=== PATIENT | female | born 1975 | race Two or more races ===

== ENCOUNTER 2016-08-07 11:51 | Emergency (ER) | payer SELFPAY | END 2016-08-07 12:38 | disposition home or self-care (01) | LOC: ED 11:51 | DX: G44.309 Post-traumatic headache, unspecified, not intractable (principal); R42 Dizziness and giddiness; K21.9 Gastro-esophageal reflux disease without esophagitis; Z79.899 Other long term (current) drug therapy; Z88.6 Allergy status to analgesic agent ==